=== PATIENT | female | born 2000 | race Caucasian/White ===

== ENCOUNTER 2020-09-21 02:58 | Inpatient (IN) ==
[~2020-09-21 02:58] MED LIST: Azithromycin 500 MG in 0.9 % Sodium Chloride 250 ML IVPB PRN; Famotidine 20 MG/2 ML VIAL IVP PRN; Metoclopramide 10 MG/2 ML VIAL IVP PRN; Naloxone 0.4 MG/ML INJ IVP PRN; Ondansetron 4 MG/2 ML VIAL IVP PRN
[2020-09-21] MEDS ORDERED: Ringers Solution, Lactated 1,000 ML IVC SCH (03:00)
[2020-09-21 03:58] LABS: Basophils % 0.3 %; Eosinophils # 0.1 K/mcL (0.0-0.6); Eosinophils % 0.6 %; Hematocrit 38.7 % (35.3-44.9); Hemoglobin 12.6 g/dL (11.5-15.4); Immature Granulocytes % 1.1 % (0-4); Lymphocytes % 20.8 %; Mean Corpuscular HGB Conc 32.6 g/dL (31.6-35.5); Mean Corpuscular Hemoglobin 31.2 pg (28.0-33.3); Mean Corpuscular Volume 95.8 fL (83.0-100.0); Mean Platelet Volume 10.5 fL (9.4-12.4); Monocytes # 0.9 K/mcL (0.0-1.3); Monocytes % 9.8 %; Neutrophils # 6.4 K/mcL (1.6-8.9); Platelet Count 240 K/mcL (140-400); Red Blood Count 4.04 M/mcL (3.82-4.97); Red Cell Distribution Width 13.1 % (11.5-14.5); Segmented Neutrophils % 67.4 %; White Blood Count 9.5 K/mcL (4.3-11.1)
[2020-09-21 04:16] LABS: Amphetamine Screen,Urine Negative ng/mL (Cutoff=1000); Barbiturate Screen,Urine Negative ng/mL (Cutoff=200); Benzodiazepines Screen,Urine Negative ng/mL (Cutoff=200); Cannabinoid Screen,Urine Negative ng/mL (Cutoff = 50); Cocaine Screen,Urine Negative ng/mL (Cutoff= 300); Opiate Screen,Urine Negative ng/mL (Cutoff=300); Phencyclidine Screen,Urine Negative ng/mL (Cutoff=25)
[2020-09-21] MEDS ORDERED: *HR* FentaNYL (PF) 100 MCG/2 ML VIAL IVP PRN (09:28)
[2020-09-21] MEDS ORDERED: Lidocaine 1% 20 ML MDV ONE ×2 (11:15→12:01)
[2020-09-21] MEDS ORDERED: Ibuprofen 600 MG TABLET PO ONE (11:40)
[2020-09-21] MEDS ORDERED: Lanolin 7 G OINT...G. TP PRN (15:17)
[2020-09-21] MEDS ORDERED: Oxytocin 20 units/ LR 1000 mL 20 UNIT/1,000 ML BAG IVC SCH (15:17)
[2020-09-21] MEDS ORDERED: Acetaminophen 325 MG TABLET PO PRN (15:17)
[2020-09-21] MEDS ORDERED: Ibuprofen 600 MG TABLET PO PRN (15:17)
[2020-09-21] MEDS ORDERED: Rho Immune Globulin 1,500 UNIT SYRINGE IM PRN (15:17)
[2020-09-21] MEDS ORDERED: Benzocaine/Menthol 56 GM AEROSOL SPRAY TP PRN (15:17)
[2020-09-21] MEDS ORDERED: *HR* HYDROcodone/Acet 5/325 mg TABLET PO PRN (15:17)
[2020-09-22 07:42] VITALS: BP 103/69
[2020-09-22] MEDS ORDERED: Prenatal Vit/FA 1 EACH TABLET PO SCH (09:00)
== END 2020-09-22 09:15 | disposition home or self-care (01) | DRG 768 ==
LOC: 1NENULAB → 1NENUOBS 14:57
PROVIDERS: ADMIT Registered Nurse; ATTEND Registered Nurse